=== PATIENT | male | born 1990 | race Caucasian/White ===

== ENCOUNTER 2023-02-14 22:56 | Emergency (ER) | payer SELFPAY ==
[~2023-02-14] VITALS: Ht 172.7 cm; Wt 109.0 kg
[2023-02-14 23:05] VITALS: BP 175/103; RESP 18; O2SAT 97
[2023-02-14 23:08] VITALS: PULSE 129
[2023-02-15 00:30] VITALS: TEMP 98.5
[2023-02-15] MEDS ORDERED: TETANUS, DIPHTHERIA, PERTUSSIS VAC/PF 0.5ML (>10YR OLD) IM ONE (00:30)
[2023-02-15] MEDS ORDERED: ACETAMINOPHEN 325MG TABLET PO ONE (00:30)
[2023-02-15] MEDS ORDERED: BACITRACIN ZINC OINT UDPKT TOP ONE (01:15)
[2023-02-15] MEDS ORDERED: IBUP-2029 PO (02:19)
[2023-02-15] MEDS ORDERED: SILV20CR13 TP (02:19)
== END 2023-02-15 04:39 | disposition home or self-care (01) ==
LOC: ER 22:56
DX: S01.312A Laceration without foreign body of left ear, initial encounter (principal); T21.01XA Burn of unspecified degree of chest wall, initial encounter; T70.29XA Other effects of high altitude, initial encounter; X58.XXXA Exposure to other specified factors, initial encounter; Y93.89 Activity, other specified; Y92.89 Other specified places as the place of occurrence of the external cause; Y99.8 Other external cause status; H72.93 Unspecified perforation of tympanic membrane, bilateral
CPT/HCPCS: 71045; 90471; 90715; 99283